=== PATIENT | female | born 1955 | race Caucasian/White ===

== ENCOUNTER → 2020-01-13 17:43 | Outpatient (CLI) | payer OTHER, SELFPAY ==
--- NOTE | ~2020-01-13 | MM_ITS ---
EXAMINATION: MM screening [facility] BI w maryan HISTORY: Screening mammogram TECHNIQUE: Craniocaudal and mediolateral oblique 3-D tomosynthesis images were obtained and synthetic 2-D images were generated. CAD analysis was submitted and interpreted. COMPARISON: 12/20/2018, 12/09/2018, 12/03/2017, 11/17/2016 BREAST PARENCHYMAL COMPOSITION: There are scattered areas of fibroglandular density. FINDINGS: RIGHT BREAST: There are indeterminate calcifications in a linear distribution in the middle third of the central breast. LEFT BREAST: There is no evidence of suspicious mass, calcification, or architectural distortion to s uggest malignancy. There has been no significant interval change. IMPRESSION: 1. Indeterminate right breast calcifications. 2. Magnification views are recommended. BI-RADS Category 0: Incomplete: Needs additional imaging evaluation. Reviewed, dictated and finalized at location A. 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
== END ==
PROVIDERS: PCP Family Medicine; Visit Provider Obstetrics & Gynecology
DX: Z12.31 Encounter for screening mammogram for malignant neoplasm of breast (principal); R92.8 Other abnormal and inconclusive findings on diagnostic imaging of breast
CPT/HCPCS: 77063; 77067

== ENCOUNTER → 2020-02-06 09:26 | Outpatient (CLI) | payer OTHER, SELFPAY ==
--- NOTE | ~2020-02-06 | MM_ITS ---
EXAMINATION: MM diagnostic mammo unilat RT HISTORY: Follow-up breast calcifications TECHNIQUE: Additional 3-D tomosynthesis images of the right breast were performed and synthetic 2-D i mages were generated. CAD analysis was submitted and interpreted. COMPARISON: Comparison to multiple prior studies sequentially, with oldest reviewed study dated 11/17. BREAST PARENCHYMAL COMPOSITION: Breast composed of scattered areas of fibroglandular density FINDINGS: There is a cluster of punctate nonspecific calcifications in the upper central aspect of th e right breast, middle third. There are no suspicious masses or architectural distortion. IMPRESSION: 1. Clustered indeterminate right breast calcifications. 2. Stereotactic right breast biopsy recommended. BI-RADS category 4, suspicious findings. Reviewed, dictated and finalized at location A. 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
== END ==
PROVIDERS: PCP Family Medicine; Visit Provider Obstetrics & Gynecology
DX: R92.1 Mammographic calcification found on diagnostic imaging of breast (principal)
CPT/HCPCS: 77065

== ENCOUNTER 2020-09-10 09:10 | Outpatient (CLI) | payer OTHER, SELFPAY ==
--- NOTE | ~2020-09-10 | US_ITS ---
EXAMINATION: US carotid duplex BI DATE: 09/10/2020 09:39 INDICATION: Carotid bruit TECHNIQUE: Grayscale, color Doppler, and pulsed Doppler images of the cervical carotid arteries were obtained. The degree of vessel stenosis is placed in one of the following categories: normal, <50%, 5 0-69%, >=70% but less than near-occlusion, near-occlusion, or total occlusion. Note that percent sten osis relative to normal distal artery lumen diameter is indirectly measured from velocity measurement s as described by Florentino, et al. Radiology 2003; 229:340-346. COMPARISON: None. FINDINGS: RIGHT: The right common carotid artery (CCA) peak systolic velocity (PSV) is 82 cm/s. The right internal car otid artery (ICA) PSV is 122 cm/s. The right ICA end-diastolic velocity (EDV) is 39 cm/s. The right I CA/CCA PSV ratio is 1.5. Grayscale and color Doppler images yield an estimate of <50% diameter reduct ion from plaque in the ICA. The external carotid artery (ECA) PSV is 100 cm/s. There is antegrade jayla w in the right vertebral artery. LEFT: The left CCA PSV is 68 cm/s. The left ICA PSV is 125 cm/s. The left ICA EDV is 51 cm/s. The left ICA/ CCA PSV ratio is 1.8. Grayscale and color Doppler images including secondary Doppler criteria yield a n estimate of <50% diameter reduction from plaque in the ICA. The ECA PSV is 109 cm/s. There is anteg rade flow in the left vertebral artery. IMPRESSION: 1. <50% stenosis in the right internal carotid artery. 2. <50% stenosis in the left internal carotid artery. 3. Cardiac arrhythmia is present. Correlate with EKG. Reviewed, dictated and finalized at location A.
== END 2020-09-10 09:11 | disposition home or self-care (01) ==
PROVIDERS: PCP Family Medicine; Visit Provider Family Medicine
DX: R09.89 Other specified symptoms and signs involving the circulatory and respiratory systems (principal); I65.23 Occlusion and stenosis of bilateral carotid arteries
CPT/HCPCS: 93880

== ENCOUNTER 2020-09-13 08:50 | Outpatient (CLI) | payer OTHER, SELFPAY ==
--- NOTE | 2020-09-13 09:35 | ECG_ITS ---
Measurements Intervals [place] Rate: 69 P: 58 RI: 187 QRS: 51 QRSD: 88 T: 54 QT: 390 QTc: 421 Interpretive Statements SINUS RHYTHM POSSIBLE LEFT ATRIAL ENLARGEMENT BASELINE WANDER BORDERLINE ECG Electronically Signed On 09-13-2020 9:57:21 CDT by Frantz Castillo D.O.
== END 2020-09-13 08:51 | disposition home or self-care (01) ==
LOC: ANHCARD 08:51
PROVIDERS: PCP Family Medicine; Visit Provider Physician Assistant
DX: I49.9 Cardiac arrhythmia, unspecified (principal); R94.31 Abnormal electrocardiogram [ECG] [EKG]
CPT/HCPCS: 93005

== ENCOUNTER → 2020-11-27 14:38 | Outpatient (REF) | payer OTHER, SELFPAY | LOC: ANHLAB 14:38 | PROVIDERS: PCP Family Medicine; Visit Provider Nurse Practitioner | DX: L72.2 Steatocystoma multiplex (principal); L72.0 Epidermal cyst | CPT/HCPCS: 88304 ==

== ENCOUNTER 2022-04-19 08:48 | Emergency (ER) | payer MEDICARE, SELFPAY ==
[2022-04-19 09:00] VITALS: BP 142/69; PULSE 83; RESP 16; TEMP 36.6; O2SAT 100
--- NOTE | 2022-04-19 09:29 | ED.URI ---
HPI - URI/Sore Throat General Chief Complaint: Upper Respiratory Infection Stated Complaint: sinus pressure, congestion Time Seen by Provider: 04/19/22 09:19 Source: patient Mode of arrival: ambulatory Limitations: no limitations History of Present Illness HPI Narrative: Patient presents today with a 5 day history of sore throat, postnasal drip, cough sinus pressure, clogged ears. States the sore throat has resolved. Denies shortness of breath or fever. She has been using Sudafed, Mucinex, Vicks vapor rub with mild relief. Denies any known sick contacts. Related Data Home Medications Medication Instructions Recorded Confirmed calcium-vit D3-ferrous fumarate 1 tablet PO DAILY 05/03/21 04/19/22 600 mg-125 unit-18 mg tablet ykztgunb-itg-gvyu 18 mg-FA 400 1 tablet PO DAILY 05/03/21 04/19/22 mcg-calcium 500 mg-vit K 50 mcg tablet (Women's Multivitamin) lactobacillus combination no.4 3 3,000 mmu cells PO DAILY 04/11/22 04/19/22 billion cell capsule (Probiotic) magnesium citrate (Citrate of 150 ml PO DAILY 04/11/22 04/19/22 Magnesia oral) Allergies Allergy/AdvReac Type Severity Reaction Status Date / Time clarithromycin Allergy Unknown Rash Verified 04/19/22 08:56 minocycline Allergy Unknown Rash Verified 04/19/22 08:56 tetracycline Allergy Unknown Rash Verified 04/19/22 08:56 Review of Systems Review of Systems: CONSTITUTIONAL: Denies body aches, fever, chills, or sweats. EYES: Denies visual changes, redness, or discharge. ENT: Denies rhinorrhea. + sore throat, postnasal drip, sinus pressure, ear clogging CARDIOVASCULAR: Denies chest pain, palpitations, or edema. RESPIRATORY: Denies dyspnea.+ cough GASTROINTESTINAL: Denies abdominal pain, nausea, vomiting, or diarrhea. GENITOURINARY: Denies dysuria or hematuria. SKIN: Denies rash, itching, or wounds. MUSCULOSKELETAL: Denies back pain, joint pain, or myalgia. NEUROLOGIC: Denies headache, numbness, tingling, or weakness. PSYCH: Denies depression or anxiety. [facility] Past Medical History Medical History Anxiety FH: diabetes mellitus History of breast lump 1979 History of lipoma 09/2016 Irritable bowel syndrome with diarrhea Prediabetes Right carotid bruit Vitamin D deficiency Surgical History Surgical History History of cholecystectomy 2006 Social History Social History Smoking status: Former smoker Second hand tobacco smoke exposure: No Smoking end date: 03/02/13 Alcohol intake: current Drinks per week: 7 Substance use: never Substance use type: does not use Lack of Transportation: No Lack of Food: Never True Current Housing: I Have Housing Concerned About Future Housing: No Difficulty Paying Gas/Electric Bills: No Difficulty Paying for Meds: No Currently Unemployed: No Education: High School Diploma/GED Difficulty w/ Childcare or Family Care: No Living arrangements: with family Gender identity (if verbalized by the patient): Female Sexual Orientation (if Verbalized by the Patient): Straight or Heterosexual Spiritual care concerns: No Agree to blood products: Yes Comments At time of signature, I have reviewed and agree with nursing past medical, surgical, social and family history unless otherwise noted. Please see nursing chart for further information. There is no relevant family history pertinent to the presenting complaint Exam Narrative: GENERAL: Mildly ill-appearing, well-nourished, and in no acute distress. HEAD: Normocephalic, atraumatic. EYES: EOMI. No redness or drainage. Conjunctivae normal. ENT: Mucous membranes pink and moist. Nares congested. Bilateral easily turbinates are slightly erythematous and edematous rhinorrhea. TMs normal bilaterally. Throat normal. Uvula midline. Bilateral frontal an
== END 2022-04-19 09:34 | disposition home or self-care (01) ==
PROVIDERS: Emergency Provider Nurse Practitioner; PCP Family Medicine
DX: J06.9 Acute upper respiratory infection, unspecified (principal); Z87.891 Personal history of nicotine dependence; R73.03 Prediabetes; E55.9 Vitamin D deficiency, unspecified
CPT/HCPCS: 99213; G0463

== ENCOUNTER → 2022-05-20 10:54 | Outpatient (CLI) | payer MEDICARE, SELFPAY ==
--- NOTE | ~2022-05-20 | MR_ITS ---
MRI of the left knee Clinical history: Pain Technique: Coronal proton density and proton density-weighted images, sagittal proton-density and T2 fat-sat images, and axial proton-density fat-saturated images were acquired. Findings: Anterior and posterior cruciate ligaments are intact. Medial collateral ligament and the la teral collateral ligament complex are intact. Popliteus tendon is intact. No lateral meniscal tear identified. There is horizontal/mildly complex tearing of the posterior horn of the medial meniscus. Articular cartilage is well preserved throughout the knee. Bone marrow signals are unremarkable. Extensor mechanism is intact. Moderate joint effusion present. No Lundberg's cyst. There is nonspecific soft tissue edema posterior to the distal femur, with fluid extending along the fascial planes of the gastrocnemius muscle bellies. Impression: Horizontal/complex tearing of the posterior horn of the medial meniscus. Moderate joint effusion. Nonspecific soft tissue edema posterior to the distal femur and extending along fascial planes of the gastrocnemius muscle bellies. Correlate for posttraumatic change or other nonspecific soft tissue ed binh. Reviewed, dictated and finalized at location . Impression: Horizontal/complex tearing of the posterior horn of the medial meniscus. Moderate joint effusion. Nonspecific soft tissue edema posterior to the distal femur and extending along fascial planes of the gastrocnemius muscle bellies. Correlate for posttraumati c change or other nonspecific soft tissue edema.
== END ==
PROVIDERS: PCP Family Medicine; Visit Provider Orthopaedic Surgery
DX: S83.232A Complex tear of medial meniscus, current injury, left knee, initial encounter (principal); M25.562 Pain in left knee; M25.462 Effusion, left knee; M79.89 Other specified soft tissue disorders
CPT/HCPCS: 73721

== ENCOUNTER 2022-06-24 00:48 | Day surgery (SDC) | payer MEDICARE, SELFPAY ==
--- NOTE | 2022-06-16 08:33 | PC.NURSE ---
Report to the Outpatient Waiting Room, entrance under the green pavilion located off [facility], at time __1130 on date _06/24/22 . Planned Procedure Time: __1330 . Time changes happen often and if your time is changed the preop area will call you the afternoon before. - You and your visitor will be asked to self-screen and do not enter if you have any COVID symptoms. - A mask is optional within the hospital at this time. Patients may have clear liquids (water, carbonated beverages, clear teas, apple juice) until 3 hours prior to surgery with a maximum of 20 ounces. - No food from midnight until time of surgery - Infants may have breast milk until 4 hours before surgery, infant formula 6 hours prior to surgery. - Children will be allowed to drink immediately following surgery. If applicable, please bring a bottle or sippy cup to assist with drinking. Juice, water, soda, and popsicles are readily available. For infants on formula, please bring formula the day of surgery. Pacifiers are allowed. Take the following medications with a SIP of water the morning of surgery: ___ALPRAZOLAM DO NOT STOP ANY OF YOUR OTHER PRESCRIPTION MEDICATIONS PRIOR TO SURGERY ?EXCEPT THE FOLLOWING Medications to discontinue per physician ALL VITAMINS/SUPPLEMENTS 3 DAYS PRE OP.LAST DOSE 06/20/22 Please no make-up, nail lebanese, hairspray, perfume, deodorant, or body powder the day of surgery. No jewelry (including any body piercings) or valuables the day of surgery, leave them at home. Please take a shower or bath the night before, or the morning of, surgery with an antibacterial soap. Wear comfortable, loose fitting clothing. Children are encouraged to wear pajamas. - Jewelry must be removed prior to entering the operating room. Rings and piercings that are not removed may be cut off. - The hospital will not accept responsibility for valuables. - Please leave all valuables, including medications, at home the day of surgery. If you are going home after surgery, a licensed grain combine driver must drive you home. - NO public transportation without another adult if you receive anesthesia. - We recommend that an adult stay with you for 24 hours following discharge. - We also recommend that you do not drive, make important decision, drink alcoholic beverages, or take any drugs that were not prescribed by your health care provider for at least 24 hours after your discharge time. Follow any additional instructions given to you from your surgeon. If you or anyone in your household have experienced Covid symptoms in the past week, please notify your surgeon or the nurse liaison at the phone number below for possible testing. Telephone instructions given to PATIENT and asked if any additional questions and then verbalized understanding. Patient advised to call surgeon office or pre surgery nurse liaison [phone] if any additional questions.
[2022-06-16 08:39] VITALS: BMI 24.4
--- NOTE | 2022-06-23 13:08 | WPDANESEPPF ---
Anes - Initial Pre Proc Eval Procedure: Operation Date: 06/24/22 13:30 Proposed Procedures p Left Knee Arthroscopic Partial Medial Meniscectomy - Eric Suárez MD Date/Time: 06/23/22 13:08 Surgeon: Eric Suárez MD Pre Op Diagnosis: left knee medial meniscuc tear Patient Data Age: 67 Gender: F Height: 1.7 m Weight: 70.8 kg Allergies Allergy/AdvReac Type Severity Reaction Status Date / Time clarithromycin Allergy Unknown Rash Verified 06/24/22 12:08 minocycline Allergy Unknown Rash Verified 06/24/22 12:08 tetracycline Allergy Unknown Rash Verified 06/24/22 12:08 rofecoxib [From Vioxx] AdvReac Nausea Verified 06/24/22 12:08 Home Medications Medication Instructions Recorded Confirmed Type calcium-vit D3-ferrous fumarate 1 tablet PO DAILY 05/03/21 06/24/22 History 600 mg-125 unit-18 mg tablet zauwnzkj-opo-oacx 18 mg-FA 400 1 tablet PO DAILY 05/03/21 06/24/22 History mcg-calcium 500 mg-vit K 50 mcg tablet (Women's Multivitamin) sertraline 100 mg tablet See Rx Instructions .Route 01/09/22 06/24/22 Rx .COMPLEX #135 tabs lactobacillus combination no.4 3 3,000 mmu cells PO DAILY 04/11/22 06/24/22 History billion cell capsule (Probiotic) magnesium citrate (Citrate of 150 ml PO DAILY 04/11/22 06/24/22 History Magnesia oral) alprazolam 0.5 mg tablet 0.5 mg PO PRN PRN anxiety 06/16/22 06/24/22 History diphenoxylate-atropine 2.5 1 - 2 tablet PO PRN PRN diarrhea 06/16/22 06/24/22 History mg-0.025 mg tablet hydrocodone 5 mg-acetaminophen 325 1 - 2 tablet PO Q4-6H PRN pain #30 06/24/22 Rx mg tablet tabs Patient hx anesthesia problems: none Family hx anesthesia problems: none Results Review: All pre-operative results and documents have been reviewed as part of the pre-operative evaluation. [facility] Past Medical History Medical History Anxiety FH: diabetes mellitus History of breast lump 1979 History of lipoma 09/2016 Irritable bowel syndrome with diarrhea Prediabetes Right carotid bruit Vitamin D deficiency Surgical History Surgical History History of cholecystectomy 2006 Social History Social History (Updated 06/24/22 @ 12:45 by Lucian Hernandez DO) Smoking packs per day: 0.5 Smoking cigarettes per day: 10.0 Years smoked: 30 Smoking pack-years: 15.00 Smoking status: Former smoker Tobacco type: cigarettes Second hand tobacco smoke exposure: No Smoking end date: 03/02/06 Alcohol intake: current Drinks per week: 7 Alcohol use details: 2-3 drinks per day Substance use: never Substance use type: does not use Lack of Transportation: No Lack of Food: Never True Current Housing: I Have Housing Concerned About Future Housing: No Difficulty Paying Gas/Electric Bills: No Difficulty Paying for Meds: No Currently Unemployed: No Education: High School Diploma/GED Difficulty w/ Childcare or Family Care: No Living arrangements: with family Gender identity (if verbalized by the patient): Female Sexual Orientation (if Verbalized by the Patient): Straight or Heterosexual Spiritual care concerns: No Agree to blood products: Yes Anes - Eval Final PreProcedure Day of Procedure 06/23/22 13:08 Patient weight: normal Heart: regular rate and rhythm Lungs: clear to auscultation Airway: Mallampati scale class II Neurological: alert and oriented Last oral intake: >/= 8 hours ASA classification: III Emergent: no Anesthetic plan: proceed Anesthesia type and monitoring: general LMA and standard monitoring Results Review: All pre-operative results and documents have been reviewed as part of the pre-operative evaluation. Informed Consent: The patient's anesthetic plan and its attendant risks and benefits were discussed with the patient/family/POA. Questions were solicited and answers provided to the sati
--- NOTE | 2022-06-24 07:26 | WPDHPUPDATE1 ---
History and Physical Update Update Date/Time: 06/24/22 07:26 History and Physical has been reviewed, including an updated exam of the patient. There are NO changes in the patient's condition. Risks, benefits, and alternatives have been discussed and questions answered. Patient agrees to proceed with procedure.
[2022-06-24 11:44] VITALS: BP 138/52; PULSE 70; RESP 16; TEMP 36.4; O2SAT 98
[2022-06-24] MEDS: LACTATED RINGERS 1,000 ML 30 ML IV CONT ×2 (12:23→14:47)
[2022-06-24] MEDS: KETOROLAC 15 MG/ML VIAL (*BKC) IV PUSH (13:00)
[2022-06-24] MEDS: ACETAMINOPHEN 500 MG TABLET 1000 MG PO (13:00)
[2022-06-24] MEDS: ceFAZolin 2 GM/D5W 50 ML 2 GM/50 ML BAG IVPB (13:13)
[2022-06-24] MEDS: BUPIVACAINE/EPINEPHRINE 0.25% 50 ML VIAL 30 ML INFILTRATE (13:44)
[2022-06-24 14:19] VITALS: BP 130/49; PULSE 68; RESP 16; TEMP 37.2; O2SAT 100
--- NOTE | 2022-06-24 14:22 | P.OP_ITS ---
Procedure Note - Detailed Date of Procedure 06/24/22 Pre-op Diagnosis left knee medial meniscuc tear Post-op Diagnosis Same Procedure Performed Arthroscopic partial medial meniscectomy, left knee. Surgeon Eric Suárez MD Anesthesia General Findings Complex posterior tear. Minimal chondromalacia on the medial femur weight bearing area, and anteromedial condyle. Modest plica treated with subtle debridement. Lateral compartment normal. Description of Procedure The patient was identified and the surgical site confirmed and signed in the preoperative holding area. Antibiotics were started per protocol. She was brought to the operative room and transferred to the OR table. A general anesthetic was administered. Supine position with the operative lower extremity position in the leg landin after placement of a well padded tourniquet. The leg support was lowered and the contralateral limb was supported with a soft bolster. The knee was prepped and draped in the usual sterile fashion. A time- out was performed. The portal sites were marked and infiltrated with 0.5% Marcaine 20 mL. The limb was exsanguinated and the tourniquet inflated to 300 mL Hg. Standard inferolateral and inferomedial portals were established. Inflow was obtained with the saline pump. The camera was introduced. Diagnostic inspection of the joint was accomplished. The meniscus was debrided with the arthroscopic shaver and punches until stable. The radiofrequency probe was also used for further d?bridement. The arthroscopic instruments were removed. The tourniquet released and wounds closed with subcutaneous 4-0 Monocryl absorbable suture. Steri strips and a sterile dressing were applied. A light elastic wrap was placed. The patient was extubated and brought to the recovery room in stable condition. Estimated Blood Loss 5 Drains No Complications No immediate complications Condition Stable Disposition PACU [facility] Billing Surgery - Charge Forward: Surgery Billing
[2022-06-24 14:30] VITALS: BP 124/65; PULSE 62; RESP 15; O2SAT 100
[2022-06-24 14:44] VITALS: BP 126/64; PULSE 61; RESP 14; O2SAT 98
[2022-06-24 14:50] VITALS: BP 112/76; PULSE 63; RESP 14
[2022-06-24 15:20] VITALS: BP 141/63; PULSE 58; RESP 14
== END 2022-06-24 15:41 | disposition home or self-care (01) ==
PROVIDERS: PCP Family Medicine; Visit Provider Orthopaedic Surgery
PROC: (CPT 29870; principal; 2022-06-24 13:30)
DX: S83.232A Complex tear of medial meniscus, current injury, left knee, initial encounter (principal); X50.0XXA Overexertion from strenuous movement or load, initial encounter; K58.0 Irritable bowel syndrome with diarrhea; E55.9 Vitamin D deficiency, unspecified; R73.03 Prediabetes; F41.9 Anxiety disorder, unspecified; Z87.891 Personal history of nicotine dependence
CPT/HCPCS: 29881; A9270; J0690; J1100; J1170; J1885; J2250; J2405; J2704; J3010; J7120

== ENCOUNTER → 2023-05-04 13:02 | Outpatient (CLI) | payer MEDICARE, SELFPAY ==
--- NOTE | ~2023-05-04 | DEXA_ITS ---
Bone Density Report Name: JACKSON DEMPSEY Age: 68 Sex: Female Ethnicity: White Date of : 1955 Indication: postmenopausal; screening for osteoporosis; parental hip fracture; height loss; Referring Provider: KENO VANEGAS Study: Bone densitometry was performed. Exam Date: May 04, 2023 Accession number: [id number] Bone Density: Region BMD T-score Z-score Classification AP Spine (L1-L4) 0.821 -2.1 -0.2 Osteopenia Femoral Neck (Left) 0.720 -1.2 0.4 Osteopenia Total Hip (Left) 0.915 -0.2 1.1 Normal Femoral Neck (Right) 0.743 -1.0 0.6 Normal Total Hip (Right) 0.971 0.2 1.5 Normal Total Hip Mean 0.943 0.0 1.3 Normal World Health Organization criteria for BMD impression classify patients as: Normal (T-score at or above -1.0), Osteopenia (T-score between -1.0 and -2.5), or Osteoporosis (T-score at or below -2.5). 10-year Fracture Risk(1): Major Osteoporotic Fracture 16% Hip Fracture 0.9% Reported Risk Factors: [place] (), Neck BMD=0.720, BMI=26.0, parental fracture (1) FRAX(R) Version 3.08. Fracture probability calculated for an untreated patient. Fracture probability may be lower if the patient has received treatment. Clinical Information Provided by Patient: Parent has had a hip fracture Has used the following medications: Calcium, calcium includes vit D, MTV Patient maximum height was 67 Menopause Age: 62 Does not regularly consume dairy products Drinks caffeinated beverages Onset of menses at age 15 Number of children 0 Impression: The patient has low bone mass, based on the Total Spine T-score. The patient has an estimated ten-year risk of hip fracture of 0.9% and an estimated ten-year risk of major fracture of 16%, based on the WHO FRAX algorithm. The patient has risk factors, including: parental hip fracture. Discussion: BONE DENSITY IS LOW AT ONE OR MORE SKELETAL SITES. This patient's lowest T-score is low at one or more skeletal sites. It meets the World Health Organization's (WHO) criteria for ?low bone mass? (T-score between -1.0 and -2.5). The patient's 10-year risk of fracture as calculated by FRAX is less than the threshold where pharmacological therapy is recommended by the National Osteoporosis Foundation (NOF). However, all treatment decisions require clinical judgment and consideration of individual patient factors, including patient preferences, comorbidities, previous drug use, risk factors not captured in the FRAX model (e.g., frailty, falls, vitamin D deficiency, increased bone turnover, interval significant decline in bone density) and possible under or overestimation of fracture risk by FRAX. The patient should follow a healthful lifestyle (good nutrition with adequate calcium and vitamin D, and appropriate weight-bearing exercise). Follow-Up: Consider
== END ==
PROVIDERS: PCP Family Medicine; Visit Provider Family Medicine
DX: Z78.0 Asymptomatic menopausal state (principal); M85.88 Other specified disorders of bone density and structure, other site; M85.852 Other specified disorders of bone density and structure, left thigh
CPT/HCPCS: 77080

== ENCOUNTER 2023-09-22 13:32 | Outpatient (CLI) | payer MEDICARE, SELFPAY ==
--- NOTE | 2023-09-22 13:38 | ECHO_ITS ---
Patient Info Name: Loretta Alexandra Age: 68 years : 1955 Gender: Female Ht: 67 in Wt: 156 lbs BSA: 1.84 m2 HR: 72 bpm BP: 147 / 72 mmHg Heart Rhythm: Sinus Rhythm Technical Quality: Good Exam Date: 09/22/2023 1:52 PM Exam Location: Echo Lab Patient Status: Outpatient Admit Date: 09/22/2023 Staff Ordering Physician: Lizette Carter MD Rapid Extractor Operator: Eleanor Menjivar RDCS Attending Provider: Lizette Carter MD Referring Physician: Raul THOMPSON; Exam Type: CA echo doppler color flow Study Info Indications R01.1 - Cardiac murmur, unspecified Complete two-dimensional, color flow and Doppler transthoracic echocardiogram is performed. Summary 1. Complete two-dimensional, color flow and Doppler transthoracic echocardiogram is performed. 2. Left ventricular chamber dimension is normal. 3. Left ventricular systolic function is normal, estimated at 65-70%. 4. The left ventricular diastolic function is grade I diastolic dysfunction. 5. E/e' 13 is mildly elevated. 6. Left atrial chamber dimension is mildly enlarged. 7. There is mild aortic valve sclerosis. 8. There is mild aortic valve regurgitation. 9. There is trace mitral valve regurgitation. 10. There is mild tricuspid valve regurgitation. 11. No pulmonary hypertension, estimated pulmonary arterial systolic pressure is 31 mmHg. Left Ventricle E/e' 13 is mildly elevated. Left ventricular chamber dimension is normal. Left ventricular systolic function is normal, estimated at 65-70%. The left ventricular diastolic function is grade I diastolic dysfunction. Right Ventricle Right ventricular chamber dimension is normal. Right ventricular systolic function is normal. Left Atria Left atrial chamber dimension is mildly enlarged. Right Atria Right atrial chamber dimension is normal. Aortic Valve The aortic valve is trileaflet. There is mild aortic valve sclerosis. There is no aortic valve stenosis. There is mild aortic valve regurgitation. Pulmonic Valve There is no pulmonic regurgitation. Mitral Valve There is no mitral valve stenosis. There is trace mitral valve regurgitation. Tricuspid Valve There is mild tricuspid valve regurgitation. No pulmonary hypertension, estimated pulmonary arterial systolic pressure is 31 mmHg. Pericardium/Pleural There is no pericardial effusion. Inferior Vena Cava Normal inferior vena cava with >50% collapse upon inspiration consistent with normal right atrial pressure, 5 mmHg. Aorta The aortic root size at the sinus of Valsalva is normal. Left Ventricular Outflow Tract Name Value Normal LVOT 2D LVOT Diameter 2.0 cm LVOT Doppler LVOT Peak Gradient 5 mmHg LVOT Mean Gradient 3 mmHg LVOT VTI 25 cm LVOT VTI/AV VTI Ratio 0.8 LVOT Stroke Volume 80 ml LVOT CO 5.4 l/min LVOT CI 2.9 l/min/m2 Pulmonic Valve Name Value Normal
== END 2023-09-22 13:33 | disposition home or self-care (01) ==
PROVIDERS: PCP Family Medicine; Visit Provider Family Medicine
DX: R01.1 Cardiac murmur, unspecified (principal); I51.89 Other ill-defined heart diseases; I35.8 Other nonrheumatic aortic valve disorders; I35.1 Nonrheumatic aortic (valve) insufficiency; I36.1 Nonrheumatic tricuspid (valve) insufficiency
CPT/HCPCS: 93306

== ENCOUNTER 2024-09-05 11:05 | Outpatient (CLI) | payer MEDICARE, SELFPAY ==
--- NOTE | ~2024-09-05 | XR_ITS ---
EXAMINATION: XR abdomen obstructive series DATE: 09/05/2024 12:08 INDICATION: Left upper quadrant pain TECHNIQUE: Supine and upright views of the abdomen. FINDINGS: No prior studies for comparison. The visualized lung parenchyma is normal.. There is a nonobstructive bowel gas pattern. Gas and stool are seen throughout the colon to the level of the rectum. There is no free air. There are cholecyst ectomy clips. IMPRESSION: 1. No acute abdominal abnormality. Reviewed, dictated and finalized at location A.
--- NOTE | ~2024-09-05 | XR_ITS ---
HISTORY: M54.14 - Radiculopathy, thoracic region COMPARISON: None TECHNIQUE: 3 views of the thoracic spine were performed FINDINGS: No acute compression fracture is present. Bone mineralization is age advanced Moderate degenerative disease is identified with osteophyte formation, disc space narrowing, endplate changes. IMPRESSION: Degenerative disease, without acute fracture. Reviewed, dictated and finalized at location A.
== END 2024-09-05 11:06 | disposition home or self-care (01) ==
PROVIDERS: PCP Family Medicine; Visit Provider Family Medicine
DX: M51.34 Other intervertebral disc degeneration, thoracic region (principal); R10.12 Left upper quadrant pain
CPT/HCPCS: 72072; 74019